=== PATIENT | female | born 1930 | race Caucasian/White ===

== ENCOUNTER 2018-11-13 19:47 | Inpatient (IN) ==
[2018-11-13 20:20] LABS: Basophils % 0.3 % (0.1-2.0); Eosinophils # 0.1 K/mm3 (0.0-0.4); Eosinophils % 0.7 % (0.1-12.0); Hematocrit 46.4 % (37.0-47.0); Hemoglobin 12.8 g/dL (12.2-16.2); Lymphocytes # 1.4 K/mm3 (0.7-4.5); Lymphocytes % 10.9 % (10-50); Mean Corpuscular HGB Conc 27.6 g/dL (31.8-35.4); Mean Corpuscular Hemoglobin 22.7 pg (27.0-31.2); Mean Corpuscular Volume 82.1 fl (81-99); Mean Platelet Volume 9.5 fl (7.4-10.4); Monocytes # 0.9 K/mm3 (0.1-1.0); Monocytes % 6.9 % (1.7-9.3); Neutrophils # 10.3 K/mm3 (1.8-7.8); Neutrophils % 81.2 % (37.0-80.0); Platelet Count 301 K/mm3 (142-424); Red Blood Count 5.65 M/mm3 (4.20-5.40); Red Cell Distribution Width 18.4 % (11.5-17.5); White Blood Count 12.6 K/mm3 (4.8-10.8)
--- NOTE | 2018-11-13 20:32 | Emergency Department Note ---
ED Disposition Clinical Impression: Hypercalcemia, Chronic atrial fibrillation, Hx of aortic valve replacement, Prolonged INR, Hypernatremia Acute renal failure (ARF) Qualifiers: Acute renal failure type: unspecified Qualified Code(s): N17.9 - Acute kidney failure, unspecified Disposition: Admitted as Observation Condition on Discharge: Good Referrals: Hussain Hines MD [Primary Care Provider] - - Critical Care Critical Care Time: No Attestation: On 11/13/18, the high probability of a clinically significant, sudden or life threatening deterioration of the following system(s) required my full and direct attention, intervention and personal management. The time I documented below is in addition to time spent performing reported procedures but includes the following listed in this critical care notation. Medical Decision Making - Medical Records Medical records reviewed: Yes: I reviewed the patient's medical records. - David Inquiry Pt receiving controlled substance: No Vital Signs: 11/13/18 19:49 Temperature 97.9 F Temperature Source Oral Pulse Rate [Right] 92 H Respiratory Rate 14 Blood Pressure [Right Arm] 120/67 Blood Pressure Mean [Right Arm] 84 Blood Pressure Source [Right Arm] Automatic Cuff Blood Pressure Position [Right Arm] Supine 02 Sat by Pulse Oximetry 98 Oxygen Delivery Method Room Air - Lab Data Lab results reviewed: Yes: I reviewed the patient's lab results. Lab Results 11/13/18 20:10: WBC 12.6 H, RBC 5.65 H, Hgb 12.8, Hct 46.4, MCV 82.1, MCH 22.7 L , MCHC 27.6 L, RDW 18.4 H, Plt Count 301, MPV 9.5, Neut % (Auto) 81.2 H, Lymph % (Auto) 10.9, [place] % (Auto) 6.9, Eos % (Auto) 0.7, Baso % (Auto) 0.3, Neut # (Auto) 10.3 H, Lymph # (Auto) 1.4, [place] # (Auto) 0.9, Eos # (Auto) 0.1, Baso # (Auto) 0.0 11/13/18 20:10: PT 52.9 H, INR 5.52 H 11/13/18 20:10: Sodium 156 H*, Potassium 5.3 H, Chloride 121 H, Carbon Dioxide 26, Anion Gap 14.3, BUN 79 H, Creatinine 3.10 H, Estimated Creat Clear 10, Estimated GFR 14 L*, Est GFR ( Amer) 17 L*, Glucose 202 H D, Calcium 12.3 H*, Total Bilirubin 0.4, AST 193 H, ALT 208 H, Alkaline Phosphatase 268 H, Troponin I 0.06, Total Protein 8.6 H, Albumin 3.0 L, Globulin 5.6 H, Albumin/Globulin Ratio 0.5 L Result diagrams: 11/13/18 20:10 11/13/18 20:10 Orders (Tests/Meds): ORDERS Category Date Time Status XR chest portable Stat Exams 11/13/18 19:57 Taken Urinalysis and Microscopic Stat Lab 11/13/18 19:55 Ordered - ECG Data Tracing #1 Arrhythmias present: afib/aflutter Ischemic changes: non-specific ST-T wave changes Conduction abnormalities present: LBBB ECG compared to prior tracings: there are no significant changes - Physician Consults Physician Consulted: jw Reason -: Admission Recheck HPI - General Chief Complaint: Recheck/Abnormal Lab/Rx Stated Complaint: abnormal labs Time Seen by Provider: 11/13/18 20:00 Mode of Arrival: EMS Limitations: Physical Limitations Description of Symptoms (Recalled from ER Triage Doc. by RN): Pt sent here by Dr De Guzman for abnormal labs - History of Present Illness HPI narrative: sent sec to abn labs was seen in the card [facility] - has hx of chf - Related Data Home Medications Medication Instructions Recorded Confirmed aspirin 81 mg tablet,delayed 81 mg PO DAILY 10/26/17 11/13/18 release Donepezil HCl [Aricept 10mg 10 mg PO HS 10/26/18 11/13/18 tablet] Gabapentin [Neurontin 100mg 100 mg PO BID 10/26/18 11/13/18 cap] Memantine HCl [Memantine 10mg 10 mg PO BID 10/26/18 11/13/18 Tablet] Mirabegron [Myrbetriq] 50 mg PO DAILY 10/26/18 11/13/18 Multivit-Min/FA/Lycopen/Lutein 1 each PO DAILY 10/26/18 11/13/18 [Centrum Silver Tablet] Polyethylene Glycol 3350 [Miralax 17 gm PO DAILY 10/26/18 11/13/18 17gm Packet] Warfarin Sodium 2.5 mg PO SUTUTHSA 10/26/18 11/13/18 Warfarin Sodium [Coumadin 2mg 5 mg PO MOWEFR 10/26/18 11/13/18 tablet] Fluticasone Propionate [Flonase 1 spr NS DAILY 10/29/18 11/13/18 50mcg nasal spray 16gm] Hydrocortisone [Proctosol-Hc] 1 applicatio TP TIDP PRN 10/29/18 11/13/18 Albuterol Sulfate [Proventil-HFA 1 - 2 puffs IH Q6HP PRN 11/13/18 11/13/18 90mcg/puff Inh] Metoprolol Tartrate [Lopressor 25 mg PO BID 11/13/18 11/13/18 25mg tablet] Potassium Chloride [K-Tab ER 20 20 meq PO BID 11/13/18 11/13/18 mEq] Spironolactone [Aldactone 25mg 25 mg PO DAILY 11/13/18 11/13/18 Tab] guaiFENesin [Guaifenesin] 100 mg PO Q4-6H PRN 11/13/18 11/13/18 Previous Rx's Medication Instructions Recorded Acetaminophen [Acetaminophen 325mg 650 mg PO Q4HP PRN tab 06/01/17 tab] dilTIAZem HCl [Diltiazem 180mg 180 mg PO DAILY #30 cap.er.24h 06/01/17 24Hr ER Cap] furosemide 40 mg tablet 40 mg PO DAILY #30 tab 11/13/18 Allergies Allergy/AdvReac Type Severity Reaction Status Date / Time No Known Allergies Allergy Verified 11/13/18 14:52 [facility] History - Hepatitis A Screen Drug use history?: No High risk sexual behaviors?: No History of sexually transmitted infection?: No Currently employed?: No Childcare worker?: No Do you have indoor plumbing?: Yes Do you have electricity?: Yes Attestation statement:: This patient has been screened for Hepatitis A risk factors. I have reviewed the patient's past medical history: Yes Medical History: Reports:: Arrhythmia, Asthma, Atrial Fibrillation, Congestive Heart Failure, Dementia, Gastroesophageal Reflux Disease(GERD), Hiatal Hernia, Hypertension, Osteoporosis, Palpitations, Renal Disease Denies:: Diabetes Mellitus Type 1, Diabetes Mellitus Type 2 Other Medical History: Reports: Anemia, Arthritis, Osteoporosis, Sinus Problems Comment: Cardiomegaly Laterality Cases: Bilateral: Carpal Tunnel Release Other Surgeries: Yes: Cardiac Surgery (aortic valve replacement), Cholecystect nickolas, Diagnostic Lap, Hysterectomy-Total, Tubal Ligation Amputation: No Fractures: No Comment: mitral valve replacement, hemorrhoids - Social History Smoking Status: Never smoker Alcohol Intake: never Alcohol Intake Frequency:: other Occupational Status: retired Housing: residential Household Members: other - Psychiatric History Expresses thoughts of harming self/others: None Suicide Plan Description: No Plan Family Hx:: No significant family history, Cancer, Heart Attack ROS Obtained: Yes All systems reviewed & no additional complaints - Constitutional Constitutional: Reports as per HPI, Denies fever(s), Reports weakness - Eyes Eyes: Denies change in vision - ENT Ears, Nose, Mouth, and Throat: Denies sore throat - Cardiovascular Cardiovascular: Denies chest pain - Respiratory Respiratory: No cough - Gastrointestinal Gastrointestingal: Denies: abdominal pain, vomiting - Genitourinary Female Genitourinary: Denies hematuria - Musculoskeletal Musculoskeletal: Denies joint swelling - Integumentary/Breasts Skin/Breast: Denies rash - Neurologic Neurologic: Denies seizure-like activity Physical Exam - General General appearance: alert, lethargic, cachectic - Head Head exam: normocephalic - Eye Eye exam: Present: PERRL, EOMI - ENT ENT exam: Present: mucous membranes dry - Neck Neck exam: Present: trachea midline - Respiratory Respiratory exam: Absent: respiratory distress - Cardiovascular Cardiovascular exam: Present: irregular rhythm, systolic murmur, +S4 - Abdominal Exam Abdominal exam: Present: soft - Extremities Exam Extremities exam: Present: pedal edema. Absent: calf tenderness - Neurological Exam Neurological exam: Present: alert, CN II-XII intact. Absent: motor sensory deficit - Skin Skin exam: Absent: rash
[2018-11-13 20:34] LABS: INR 5.52 (0.9-1.1); Prothrombin Time 52.9 seconds (9.4-11.8)
[2018-11-13 20:39] LABS: Albumin/Globulin Ratio 0.5 (1.1-1.8); Anion Gap 14.3 mEq/L (5-15); Bilirubin,Total 0.4 mg/dL (0.2-1.0); Globulin 5.6 gm/dl (1.3-3.2); Potassium 5.3 mmoL/L (3.5-5.1); Total Protein,Serum 8.6 gm/dL (6.4-8.2)
[2018-11-13 20:45] LABS: Calcium 12.3 mg/dL (8.5-10.1)
[2018-11-13 21:56] LABS: Microscopic, Urine URINE MICROSCOPIC (MICROSCOPIC)
[2018-11-13 21:58] LABS: Appearance,Urine CLEAR (Clear); Bilirubin,Urine Negative (Negative); Blood, Urine 2+ (Negative); Color,Urine YELLOW (Yellow); Glucose,Urine (UA) Negative (Negative); Ketones,Urine Negative (Negative); Leukocyte Esterase,Urine 1+ (Negative); Protein,Urine 1+ (Negative); Urobilinogen,Urine 0.2 EU/dl (0.2)
[2018-11-13 22:09] LABS: Bacteria,Urine Trace /lpf
[2018-11-13 22:10] LABS: Hyaline Casts,Urine Occasional #/lpf (0)
[2018-11-14 06:20] LABS: Basophils # 0.1 K/mm3 (0-0.2); Basophils % 0.4 % (0.1-2.0); Eosinophils # 0.2 K/mm3 (0.0-0.4); Eosinophils % 1.6 % (0.1-12.0); Hematocrit 42.7 % (37.0-47.0); Hemoglobin 11.7 g/dL (12.2-16.2); Lymphocytes % 17.6 % (10-50); Mean Corpuscular HGB Conc 27.4 g/dL (31.8-35.4); Mean Corpuscular Hemoglobin 22.7 pg (27.0-31.2); Mean Corpuscular Volume 82.9 fl (81-99); Mean Platelet Volume 8.5 fl (7.4-10.4); Monocytes # 0.7 K/mm3 (0.1-1.0); Monocytes % 6.6 % (1.7-9.3); Neutrophils # 8.3 K/mm3 (1.8-7.8); Neutrophils % 73.8 % (37.0-80.0); Platelet Count 237 K/mm3 (142-424); Red Blood Count 5.15 M/mm3 (4.20-5.40); Red Cell Distribution Width 18.6 % (11.5-17.5); White Blood Count 11.3 K/mm3 (4.8-10.8)
[2018-11-14 06:40] LABS: Anion Gap 11.7 mEq/L (5-15); Calcium 11.8 mg/dL (8.5-10.1); Potassium 4.7 mmoL/L (3.5-5.1)
--- NOTE | 2018-11-14 08:22 | Pharmacy Consult Notes ---
[facility] Pharmacy VTE Monitoring - Patient Demographics Admission date: 11/13/18 Report Date: 11/14/18 Time: 08:22 Allergies/Adverse Reactions: Patient Allergies No Known Allergies Allergy (Verified 11/13/18 14:52) Height: 1.57 m Weight: 50.037 kg Patient Problems: Current Active Problems (Updated 11/13/18 @ 21:41 by Garrett Colindres MD) Acute renal failure (ARF) (Acute) Hypercalcemia (Acute) Prolonged INR (Acute) Hypernatremia (Acute) Hx of aortic valve replacement (Chronic) Chronic atrial fibrillation (Chronic) - VTE Risk Labs: VTE Related Lab Results Hgb 11.7 g/dL (12.2-16.2) L 11/14/18 05:45 Hct 42.7 % (37.0-47.0) 11/14/18 05:45 Plt Count 237 K/mm3 (142-424) 11/14/18 05:45 PT 52.9 seconds (9.4-11.8) H 11/13/18 20:10 INR 5.52 (0.9-1.1) H 11/13/18 20:10 BUN 80 mg/dL (7-18) H 11/14/18 05:45 Creatinine 2.65 mg/dL (0.55-1.02) H 11/14/18 05:45 Estimated Creat Clear 12 mL/min (50-200) 11/14/18 05:45 Was VTE Risk Assessment Performed: Yes VTE Score: 11 VTE Risk Level: Moderate Risk Clinical Trial Participant: No - Prophylaxis VTE Prophylaxis Ordered?: Yes Types of VTE Prophylaxis: TEDS Knee High
[2018-11-14 08:32] LABS: INR 4.71 (0.9-1.1); Prothrombin Time 45.5 seconds (9.4-11.8)
--- NOTE | 2018-11-14 08:33 | History & Physical Report ---
*Admission Date: 11/13/18 <Norah Smith - 11/14/18 08:37> *Chief complaint: Lethargy; acute renal failure; dehydration <Tiara Smithhy 11/14/18 08:37> *History of present illness: Ms. Stevens is an 88-year-old female resident of [place] with a quite lengthy medical history to include acute systolic heart failure, chronic atrial fibrillation, chronic kidney disease stage III, anemia, allergic rhinitis, asthma, AVR, general mental and physical debility, hypertension, COPD, and dementia who was brought to [facility] emergency room for evaluation after being notified by Dr. De Guzman's office of abnormal laboratory results. Patient was seen in the office of Dr. De Guzman where labs were drawn on 11/13/2018 after which patient also presented to the office of [facility] and was seen by Dr. Hines. Recent labs showed a creatinine of 2.1. Diuretics were decreased and gabapentin discontinued. At the time of this visit she had been traveling to the offices in a wheelchair and appeared fatigued. To note she had recently been hospitalized in [facility] with cardiology consult and was treated aggressively for her acute systolic congestive heart failure with spironolactone and Lasix. With evaluation in the emergency room she was started on IV fluids and admitted for gentle hydration and monitoring of labs. This a.m. daughter is present in the room and states that she has been sleeping since admission. She states that initially after being discharged last week from [facility] back to [place] for about the first 3 days she did satisfactory. From then on she became weaker and had difficulty holding her head up when in a wheelchair. She was not eating and she was on fluid restriction. Today patient denies chest pain, shortness of breath, abdominal pain, and nausea. Daughter states she has had any vomiting or diarrhea. Urinary output has been diminished. <Norah Smith - 11/14/18 09:13> [facility] History Medical History: Reports:: Arrhythmia, Asthma, Atrial Fibrillation, Congestive Heart Failure, Dementia, Gastroesophageal Reflux Disease(GERD), Hiatal Hernia, Hypertension, Osteoporosis, Palpitations, Renal Disease Denies:: Cancer, Diabetes Mellitus Type 1, Diabetes Mellitus Type 2, MRSA <Norah Smith 11/14/18 08:37> *Have you ever received a pneumonia vaccine?: Yes <LuisNorah 11/14/18 08:37> *Have you received a flu vaccine this season?: Yes <SmithNorah 11/14/18 08:37> Other Medical History: Reports: Anemia, Arthritis, Osteoporosis, Sinus Problems <LuisNorah 11/14/18 08:37> Laterality Cases: Left: Cataract, Bilateral: Carpal Tunnel Release <Smith,Norah 11/14/18 08:37> Other Surgeries: Yes: Cardiac Catheterization, Cardiac Surgery (aortic valve replacement), Cholecystectomy, Diagnostic Lap, Hysterectomy-Total, Tubal Ligation <SmithNorah 11/14/18 08:37> Amputation: No <Norah Smith 11/14/18 08:37> Fractures: No <Smith,Norah 11/14/18 08:37> - *Social History Smoking Status: Never smoker <LuisNorah 11/14/18 08:37> Alcohol Intake: never <LuisNorah 11/14/18 08:37> Alcohol Intake Frequency:: other <SmithNorah 11/14/18 08:37> *Occupational Status:: retired <SmithNorah 11/14/18 08:37> Housing: senior care <SmithNorah 11/14/18 08:37> Household Members: other <SmithNorah 11/14/18 08:37> *Travel in the last 8 weeks: None <LuisNorah 11/14/18 08:37> - Psychiatric History Expresses thoughts of harming self/others: None <Norah Smith 11/14/18 08:3 7> Suicide Plan Description: No Plan <Norah Smith 11/14/18 08:37> Family Hx:: Cancer, Heart Attack <Norah Smith 11/14/18 08:53> Review of Systems - Constitutional Reports weakness, Denies fever(s), Denies headache(s) <Norah Smith 11/14/18 08:53> - Eyes Comments: Watery eyes <Norah Smith 11/14/18 08:53> - ENT Denies ear pain, Denies sore throat <Norah Smith 11/14/18 08:53> - *Cardiovascular Reports irregular heart rhythm, Denies chest pain <Norah Smith 11/14/18 08:53> - *Respiratory Denies chest congestion, Denies cough, Denies shortness of breath <Norah Smith 11/14/18 08:53> - *Gastrointestinal Denies abdominal pain, Denies change in stools, Denies difficulty swallowing, Denies nausea, Denies vomiting <Norah Smith 11/14/18 08:53> Comments: Has not been eating <Norah Smith 11/14/18 08:53> - *Genitourinary Comments: Decrease in urinary output <Norah Smith 11/14/18 08:53> - *Musculoskeletal Comments: Too weak to walk and to sit up in a wheelchair <Norah Smith 11/14/18 08:53> - *Neurologic Reports tremor(s), Reports weakness, Denies seizure-like activity, Denies seizure-like activity <Norah Smith 11/14/18 08:53> Meds Home Medications Medication Instructions Recorded Confirmed Type Acetaminophen [Acetaminophen 325mg 650 mg PO Q4HP PRN tab 06/01/17 11/13/18 Rx tab] dilTIAZem HCl [Diltiazem 180mg 180 mg PO DAILY #30 cap.er.24h 06/01/17 11/13/18 Rx 24Hr ER Cap] aspirin 81 mg tablet,delayed 81 mg PO DAILY 10/26/17 11/13/18 History release Donepezil HCl [Aricept 10mg 10 mg PO HS 10/26/18 11/13/18 History tablet] Memantine HCl [Memantine 10mg 10 mg PO BID 10/26/18 11/14/18 History Tablet] Mirabegron [Myrbetriq] 50 mg PO DAILY 10/26/18 11/14/18 History Multivit-Min/FA/Lycopen/Lutein 1 each PO DAILY 10/26/18 11/13/18 History [Centrum Silver Tablet] Polyethylene Glycol 3350 [Miralax 17 gm PO DAILY 10/26/18 11/14/18 History 17gm Packet] Warfarin Sodium [Coumadin 2mg 4 mg PO MOWEFR 10/26/18 11/14/18 History tablet] Fluticasone Propionate [Flonase 1 spr NS DAILY 10/29/18 11/13/18 History 50mcg nasal spray 16gm] Hydrocortisone [Proctosol-Hc] 1 applicatio TP TIDP PRN 10/29/18 11/13/18 History Albuterol Sulfate [Proventil-HFA 1 - 2 puffs IH Q6HP PRN 11/13/18 11/13/18 History 90mcg/puff Inh] Metoprolol Tartrate [Lopressor 25 mg PO BID 11/13/18 11/14/18 History 25mg tablet] Potassium Chloride [K-Tab ER 20 20 meq PO BID 11/13/18 11/13/18 History mEq] Spironolactone [Aldactone 25mg 25 mg PO DAILY 11/13/18 11/13/18 History Tab] furosemide 40 mg tablet 40 mg PO DAILY #30 tab 11/13/18 11/14/18 Rx guaiFENesin [Guaifenesin] 100 mg PO Q4-6H PRN 11/13/18 11/13/18 History <Hussain Hines - 11/14/18 12:32> Allergies Allergy/AdvReac Type Severity Reaction Status Date / Time No Known Allergies Allergy Verified 11/13/18 14:52 <Hussain Hines - 11/14/18 12:32> Exam Vital signs and Labs for Last 24 Hours: Temp Pulse Resp BP Pulse Ox 97.5 F L 80 17 129/70 97 11/14/18 07:47 11/14/18 07:47 11/14/18 07:47 11/14/18 07:47 11/14/18 07:47 Laboratory Results - last 24 hr 11/13/18 20:10: WBC 12.6 H, RBC 5.65 H, Hgb 12.8, Hct 46.4, MCV 82.1, MCH 22.7 L , MCHC 27.6 L, RDW 18.4 H, Plt Count 301, MPV 9.5, Neut % (Auto) 81.2 H, Lymph % (Auto) 10.9, [place] % (Auto) 6.9, Eos % (Auto) 0.7, Baso % (Auto) 0.3, Neut # (Auto) 10.3 H, Lymph # (Auto) 1.4, [place] # (Auto) 0.9, Eos # (Auto) 0.1, Baso # (Auto) 0.0 11/13/18 20:10: PT 52.9 H, INR 5.52 H 11/13/18 20:10: Sodium 156 H*, Potassium 5.3 H, Chloride 121 H, Carbon Dioxide 26, Anion Gap 14.3, BUN 79 H, Creatinine 3.10 H, Estimated Creat Clear 10, Estimated GFR 14 L*, Est GFR ( Amer) 17 L*, Glucose 202 H D, Calcium 12.3 H*, Total Bilirubin 0.4, AST 193 H, ALT 208 H, Alkaline Phosphatase 268 H, Troponin I 0.06, Total Protein 8.6 H, Albumin 3.0 L, Globulin 5.6 H, Albumin/Ela bulin Ratio 0.5 L 11/13/18 21:50: Urine Color Yellow, Urine Appearance Clear, Urine pH 6.0, Ur Specific [place] 1.020, Urine Protein 1+, Urine Glucose (UA) Negative, Urine Ketones Negative, Urine Blood 2+, Urine Nitrate Negative, Urine Bilirubin Negative, Urine Urobilinogen 0.2, Ur Leukocyte Esterase 1+ A, Urine RBC 10-20, Urine WBC 5-10, Ur Squamous Epith Cells 3-5, Urine Bacteria Trace, Hyaline Casts Occasional 11/14/18 05:45: WBC 11.3 H, RBC 5.15, Hgb 11.7 L, Hct 42.7, MCV 82.9, MCH 22.7 L , MCHC 27.4 L, RDW 18.6 H, Plt Count 237, MPV 8.5, Neut % (Auto) 73.8, Lymph % (Auto) 17.6, [place] % (Auto) 6.6, Eos % (Auto) 1.6, Baso % (Auto) 0.4, Neut # (Auto) 8.3 H, Lymph # (Auto) 2.0, [place] # (Auto) 0.7, Eos # (Auto) 0.2, Baso # (Auto) 0.1 11/14/18 05:45: PT 45.5 H, INR 4.71 H 11/14/18 05:45: Sodium 159 H*, Potassium 4.7, Chloride 122 H, Carbon Dioxide 30, Anion Gap 11.7, BUN 80 H, Creatinine 2.65 H, Estimated Creat Clear 12, Estimated GFR 17 L*, Est GFR ( Amer) 21 L D, Glucose 158 H D, Calcium 11.8 H, Magnesium 3.2 H 11/14/18 05:45: Total Bilirubin 0.3, Direct Bilirubin 0.1, Indirect Bilirubin 0.2, AST 148 H, ALT 185 H, Alkaline Phosphatase 237 H, Total Protein 7.8, Albumin 2.8 L <Hussain Hines - 11/14/18 12:32> Temp Pulse Resp BP Pulse Ox 97.5 F L 80 17 129/70 97 11/14/18 07:47 11/14/18 07:47 11/14/18 07:47 11/14/18 07:47 11/14/18 07:47 Laboratory Results - last 24 hr 11/13/18 20:10: WBC 12.6 H, RBC 5.65 H, Hgb 12.8, Hct 46.4, MCV 82.1, MCH 22.7 L , MCHC 27.6 L, RDW 18.4 H, Plt Count 301, MPV 9.5, Neut % (Auto) 81.2 H, Lymph % (Auto) 10.9, [place] % (Auto) 6.9, Eos % (Auto) 0.7, Baso % (Auto) 0.3, Neut # (Auto) 10.3 H, Lymph # (Auto) 1.4, [place] # (Auto) 0.9, Eos # (Auto) 0.1, Baso # (Auto) 0.0 11/13/18 20:10: PT 52.9 H, INR 5.52 H 11/13/18 20:10: Sodium 156 H*, Potassium 5.3 H, Chloride 121 H, Carbon Dioxide 26, Anion Gap 14.3, BUN 79 H, Creatinine 3.10 H, Estimated Creat Clear 10, Estimated GFR 14 L*, Est GFR ( Amer) 17 L*, Glucose 202 H D, Calcium 12.3 H*, Total Bilirubin 0.4, AST 193 H, ALT 208 H, Alkaline Phosphatase 268 H, Troponin I 0.06, Total Protein 8.6 H, Albumin 3.0 L, Globulin 5.6 H, Albumin/Globulin Ratio 0.5 L 11/13/18 21:50: Urine Color Yellow, Urine Appearance Clear, Urine pH 6.0, Ur Specific [place] 1.020, Urine Protein 1+, Urine Glucose (UA) Negative, Urine Ketones Negative, Urine Blood 2+, Urine Nitrate Negative, Urine Bilirubin Negat araseli, Urine Urobilinogen 0.2, Ur Leukocyte Esterase 1+ A, Urine RBC 10-20, Urine WBC 5-10, Ur Squamous Epith Cells 3-5, Urine Bacteria Trace, Hyaline Casts Occasional 11/14/18 05:45: WBC 11.3 H, RBC 5.15, Hgb 11.7 L, Hct 42.7, MCV 82.9, MCH 22.7 L , MCHC 27.4 L, RDW 18.6 H, Plt Count 237, MPV 8.5, Neut % (Auto) 73.8, Lymph % (Auto) 17.6, [place] % (Auto) 6.6, Eos % (Auto) 1.6, Baso % (Auto) 0.4, Neut # (Auto) 8.3 H, Lymph # (Auto) 2.0, [place] # (Auto) 0.7, Eos # (Auto) 0.2, Baso # (Auto) 0.1 11/14/18 05:45: Sodium 159 H*, Potassium 4.7, Chloride 122 H, Carbon Dioxide 30, Anion Gap 11.7, BUN 80 H, Creatinine 2.65 H, Estimated Creat Clear 12, Estimated GFR 17 L*, Est GFR ( Amer) 21 L D, Glucose 158 H D, Calcium 11.8 H, Magnesium 3.2 H <Norah Smith - 11/14/18 08:37> I & O for Last 24 hours: Intake & Output 11/12/18 11/13/18 11/14/18 11/15/18 11:59 11:59 11:59 11:59 Intake Total 918 / 918 Output Total 150 / 150 Balance 768 / 768 Weight 110 lb 5 oz <Hussain Hines - 11/14/18 12:32> Intake & Output 11/11/18 11/12/18 11/13/18 11/14/18 11:59 11:59 11:59 11:59 Intake Total 558 / 558 Output Total 150 / 150 Balance 408 / 408 Weight 110 lb 5 oz <Norah Smith 11/14/18 08:37> Radiology Reports for the Last 24 Hours: 11/13/2018 chest x-ray IMPRESSION: Mild cardiomegaly, healing right-sided rib fractures, no acute finding <Norah Smith 11/14/18 08:53> - Constitutional no acute distress <Norah Smith 11/14/18 08:53> Comments: Awakened easily from sleep. Answers questions with yes or no <Norah Smith 11/14/18 08:53> - *Routine HEENT Exam Head: Present: normocephalic, atraumatic <Norah Smith 11/14/18 08:53> Eye: Present: PERRL. Absent: conjunctival icterus, scleral injection <Norah Smith 11/14/18 08:53> ENT: Present: mucous membranes dry, oropharynx clear <Norah Smith 11/14/18 08:53> - *Routine Neck Exam Present: supple. Absent: carotid bruit, lymphadenopathy, thyromegaly <Norah Smith 11/14/18 08:53> - *Routine Respiratory Exam Present: CTA bilaterally (Anteriorly and posteriorly) <Norah Smith 11/14/18 08:53> - *Routine Cardiovascular Exam Present: murmur, irregular rhythm <Norah Smith 11/14/18 08:53> - *Routine Abdominal Exam Present: soft, normoactive bowel sounds. Absent: tenderness, distended <Norah Smith 11/14/18 08:53> - *Routine Extremities Exam Absent: edema, calf tenderness <Norah Smith 11/14/18 08:53> - *Routine Neurological Exam Present: alert <Norah Smith 11/14/18 08:53> Assessment and Plan (1) Acute renal failure (ARF) Current visit: Yes Status: Acute Qualifiers: Acute renal failure type: unspecified Qualified Code(s): N17.9 - Acute kidney failure, unspecified Category: Medical Code(s): N17.9 - Acute kidney failure, unspecified (2) Dementia Current visit: Yes Status: Chronic Category: Medical Code(s): F03.90 - Unspecified dementia without behavioral disturbance (3) Hypercalcemia Current visit: Yes Status: Acute Category: Medical Code(s): E83.52 - Hypercalcemia (4) Hypernatremia Current visit: Yes Status: Acute Category: Medical Code(s): E87.0 - Hyperosmolality and hypernatremia (5) Prolonged INR Current visit: Yes Status: Acute Category: Medical Code(s): R79.1 - Abnormal coagulation profile (6) Chronic atrial fibrillation Current visit: Yes Status: Chronic Category: Medical Code(s): I48.2 - Chronic atrial fibrillation (7) Hx of aortic valve replacement Current visit: Yes Status: Chronic Category: Surgical Code(s): Z95.2 - Presence of prosthetic heart valve (8) Acute systolic (congestive) heart failure Current visit: No Status: Chronic Category: Medical Code(s): I50.21 - Acute systolic (congestive) heart failure (9) CKD (chronic kidney disease) stage 3, GFR 30-59 ml/min Current visit: No Status: Chronic Category: Medical Code(s): N18.3 - Chronic kidney disease, stage 3 (moderate) <Norah Smith - 11/14/18 08:56> (1) Dehydration Current visit: Yes Status: Acute Category: Medical Code(s): E86.0 - Dehydration (2) Hypernatremia Current visit: Yes Status: Acute Category: Medical Code(s): E87.0 - Hyperosmolality and hypernatremia (3) Acute renal failure (ARF) Current visit: Yes Status: Acute Qualifiers: Acute renal failure type: unspecified Qualified Code(s): N17.9 - Acute kidney failure, unspecified Category: Medical Code(s): N17.9 - Acute kidney failure, unspecified (4) Dementia Current visit: Yes Status: Chronic Category: Medical Code(s): F03.90 - Unspecified dementia without behavioral disturbance (5) Hypercalcemia Current visit: Yes Status: Acute Category: Medical Code(s): E83.52 - Hypercalcemia (6) Prolonged INR Current visit: Yes Status: Acute Category: Medical Code(s): R79.1 - Abnormal coagulation profile (7) Chronic atrial fibrillation Current visit: Yes Status: Chronic Category: Medical Code(s): I48.2 - Chronic atrial fibrillation (8) Hx of aortic valve replacement Current visit: Yes Status: Chronic Category: Surgical Code(s): Z95.2 - Presence of prosthetic heart valve (9) Acute systolic (congestive) heart failure Current visit: No Status: Chronic Category: Medical Code(s): I50.21 - Acute systolic (congestive) heart failure (10) CAD (coronary artery disease) Current visit: No Status: Chronic Qualifiers: Coronary Disease-Associated Artery/Lesion type: [place] artery [place] vs. transplanted heart: [place] heart Associated angina: without angina Qualified Code(s): I25.10 - Atherosclerotic heart disease of [place] coronary artery without angina pectoris Category: Medical Code(s): I25.10 - Atherosclerotic heart disease of [place] coronary artery without angina pectoris (11) Elevated liver enzymes Current visit: Yes Status: Acute Category: Medical Code(s): R74.8 - Abnormal levels of other serum enzymes <Hussain Hines - 11/14/18 12:32> - Assessment and plan all Dx Assessment and Plan for all problems:: Patient seen and examined. Will continue with hydration and follow labs. Cardiology consult for direction on medications <Hussain Hines - 11/14/18 12:32> Gentle hydration. Will change IV fluids to D5W due to increasing isodium. We will continue to monitor labs. Daughter will encourage p.o. fluids. <Norah Smith - 11/14/18 09:13>
[2018-11-14 08:48] LABS: Albumin Level 2.8 gm/dL (3.4-5.0); Bilirubin,Direct 0.1 mg/dL (0.0-0.2); Bilirubin,Indirect 0.2 mg/dL (0.0-0.9); Bilirubin,Total 0.3 mg/dL (0.2-1.0); Total Protein,Serum 7.8 gm/dL (6.4-8.2)
--- NOTE | 2018-11-14 10:31 | Progress Note ---
Subjective Date: 11/14/18 Time: 10:00 Principal diagnosis: dehydration Interval history: This is an 88-year-old white female who was admitted to the hospital with dehydration. Patient was seen in the cardiology clinic yesterday with complaints of fatigue, lethargy and feeling jittery. The patient's daughter was the one giving most of her history. She states that her mom just had not felt well for 3 days. The patient was felt to be dehydrated. Her diuretics were decreased. She was sent for blood work which showed a sodium of 158, a potassium of 6, creatinine of 2.81, calcium 12.5 and a BNP of 1700. The patient was then referred for hospital admission due to her severe dehydration. This morning the patient's sodium remains elevated at 159, her potassium is down to 4.7 and her creatinine is 2.65. Her liver enzymes remain elevated this morning as well. S he states that she is feeling somewhat better. She still having some fatigue but she is more alert today and able to answer all of my questions. she denies any chest pain or pressure. She denies any shortness of breath or edema. She denies any fever, chills, nausea, vomiting, diarrhea, PND or orthopnea. Exam Vital signs and Labs for Last 24 Hours: Temp Pulse Resp BP Pulse Ox 97.5 F L 80 17 129/70 97 11/14/18 07:47 11/14/18 07:47 11/14/18 07:47 11/14/18 07:47 11/14/18 07:47 Laboratory Results - last 24 hr 11/13/18 20:10: WBC 12.6 H, RBC 5.65 H, Hgb 12.8, Hct 46.4, MCV 82.1, MCH 22.7 L , MCHC 27.6 L, RDW 18.4 H, Plt Count 301, MPV 9.5, Neut % (Auto) 81.2 H, Lymph % (Auto) 10.9, [place] % (Auto) 6.9, Eos % (Auto) 0.7, Baso % (Auto) 0.3, Neut # (Auto) 10.3 H, Lymph # (Auto) 1.4, [place] # (Auto) 0.9, Eos # (Auto) 0.1, Baso # (Auto) 0.0 11/13/18 20:10: PT 52.9 H, INR 5.52 H 11/13/18 20:10: Sodium 156 H*, Potassium 5.3 H, Chloride 121 H, Carbon Dioxide 26, Anion Gap 14.3, BUN 79 H, Creatinine 3.10 H, Estimated Creat Clear 10, Estimated GFR 14 L*, Est GFR ( Amer) 17 L*, Glucose 202 H D, Calcium 12.3 H*, Total Bilirubin 0.4, AST 193 H, ALT 208 H, Alkaline Phosphatase 268 H, Troponin I 0.06, Total Protein 8.6 H, Albumin 3.0 L, Globulin 5.6 H, Albumin/Globulin Ratio 0.5 L 11/13/18 21:50: Urine Color Yellow, Urine Appearance Clear, Urine pH 6.0, Ur Specific [place] 1.020, Urine Protein 1+, Urine Glucose (UA) Negative, Urine Ketones Negative, Urine Blood 2+, Urine Nitrate Negative, Urine Bilirubin Negative, Urine Urobilinogen 0.2, Ur Leukocyte Esterase 1+ A, Urine RBC 10-20, Urine WBC 5-10, Ur Squamous Epith Cells 3-5, Urine Bacteria Trace, Hyaline Casts Occasional 11/14/18 05:45: WBC 11.3 H, RBC 5.15, Hgb 11.7 L, Hct 42.7, MCV 82.9, MCH 22.7 L , MCHC 27.4 L, RDW 18.6 H, Plt Count 237, MPV 8.5, Neut % (Auto) 73.8, Lymph % (Auto) 17.6, [place] % (Auto) 6.6, Eos % (Auto) 1.6, Baso % (Auto) 0.4, Neut # (Auto) 8.3 H, Lymph # (Auto) 2.0, [place] # (Auto) 0.7, Eos # (Auto) 0.2, Baso # (Auto) 0.1 11/14/18 05:45: PT 45.5 H, INR 4.71 H 11/14/18 05:45: Sodium 159 H*, Potassium 4.7, Chloride 122 H, Carbon Dioxide 30, Anion Gap 11.7, BUN 80 H, Creatinine 2.65 H, Estimated Creat Clear 12, Estimated GFR 17 L*, Est GFR ( Amer) 21 L D, Glucose 158 H D, Calcium 11.8 H, Magnesium 3.2 H 11/14/18 05:45: Total Bilirubin 0.3, Direct Bilirubin 0.1, Indirect Bilirubin 0.2, AST 148 H, ALT 185 H, Alkaline Phosphatase 237 H, Total Protein 7.8, Albumin 2.8 L I & O for Last 24 hours: Intake & Output 11/11/18 11/12/18 11/13/18 11/14/18 23:59 23:59 23:59 23:59 Intake Total 918 / 918 Output Total 150 / 150 Balance 768 / 768 Weight 108 lb 110 lb 5 oz - *Routine HEENT Exam Head: Present: normocephalic, atraumatic Eye: Present: EOMI, PERRL ENT: Present: mucous membranes dry - *Routine Neck Exam Present: supple, full ROM. Absent: JVD, carotid bruit, lymphadenopathy - *Routine Respiratory Exam Present: CTA bilaterally - *Routine Cardiovascular Exam Present: Normal S1, Normal S2, murmur, irregularly irregular - *Routine Abdominal Exam Present: soft, normoactive bowel sounds. Absent: tenderness, distended - *Routine Extremities Exam Present: full ROM, pulses intact. Absent: cyanosis, clubbing, edema - *Routine Skin Exam Present: intact, warm. Absent: rash - *Routine Neurological Exam Present: alert, CN II-XII intact. Absent: sensory deficit, motor deficit - Detailed Eye Exam Eyelids: Left normal inspection Progress Note: A&P (1) Dehydration Status: Acute Current Visit: Yes (2) Hypernatremia Status: Acute Current Visit: Yes (3) Acute renal failure (ARF) Status: Acute Current Visit: Yes (4) Dementia Status: Chronic Current Visit: Yes (5) Hypercalcemia Status: Acute Current Visit: Yes (6) Prolonged INR Status: Acute Current Visit: Yes (7) Chronic atrial fibrillation Status: Chronic Current Visit: Yes (8) Hx of aortic valve replacement Status: Chronic Current Visit: Yes (9) Acute systolic (congestive) heart failure Status: Chronic Current Visit: No (10) CAD (coronary artery disease) Status: Chronic Current Visit: No (11) Elevated liver enzymes Status: Acute Current Visit: Yes Assessment and Plan for All Diagnoses:: Plan: 1. The patient was admitted to the hospital for severe dehydration. The patient's sodium was 158 yesterday and her creatinine was 2.81. The patient has been getting D5W at 75 mL an hour. This morning her sodium is higher at 159 and her creatinine is 2.65. The patient needs a significant amount of free water in order to correct her hyponatremia. Will bolus her 1 L of D5W now and then give her D5W at 175 mL an hour for 2 L. 2. Have had a long discussion with the patient and her family about having her drink as much free water as possible. The patient is more awake and alert today so she is able to drink. She does require thickened liquids and I want them to have her drink as much water as she can today. The patient and her family both verbalized understanding. If she is unable to take in oral intake then we may have to consider an NG tube. 3. Repeat her BMP and liver panel in the morning. 4. The patient does have coronary artery disease which is stable. 5. Her blood pressure is well controlled. 6. Her LDL goal is less than 55. 7. The patient does have systolic congestive heart failure with an ejection fraction of 30%. Her BNP is elevated at 1700. However the BNP elevation is most likely secondary to her having pulmonary hypertension and a stretched right atrium and right ventricle. Currently she is dehydrated and needs more free water. We will continue to monitor the patient while getting fluids to make sure she does not go into pulmonary edema. 8. Further recommendations will be made pending the patient's response to treatment. Thank you for the opportunity to help participate in the care of this patient.
[2018-11-15 06:25] LABS: Basophils % 0.2 % (0.1-2.0); Eosinophils # 0.4 K/mm3 (0.0-0.4); Eosinophils % 3.3 % (0.1-12.0); Hematocrit 38.5 % (37.0-47.0); Hemoglobin 11.2 g/dL (12.2-16.2); Lymphocytes # 1.5 K/mm3 (0.7-4.5); Lymphocytes % 11.5 % (10-50); Mean Corpuscular Hemoglobin 23.8 pg (27.0-31.2); Mean Corpuscular Volume 81.9 fl (81-99); Mean Platelet Volume 9.6 fl (7.4-10.4); Monocytes # 0.9 K/mm3 (0.1-1.0); Monocytes % 6.4 % (1.7-9.3); Neutrophils # 10.5 K/mm3 (1.8-7.8); Neutrophils % 78.6 % (37.0-80.0); Platelet Count 215 K/mm3 (142-424); Red Cell Distribution Width 18.1 % (11.5-17.5); White Blood Count 13.3 K/mm3 (4.8-10.8)
[2018-11-15 06:36] LABS: Albumin Level 2.4 gm/dL (3.4-5.0); Albumin/Globulin Ratio 0.6 (1.1-1.8); Bilirubin,Total 0.4 mg/dL (0.2-1.0); Globulin 4.3 gm/dl (1.3-3.2); Total Protein,Serum 6.7 gm/dL (6.4-8.2)
[2018-11-15 07:08] LABS: INR 5.24 (0.9-1.1); Prothrombin Time 50.4 seconds (9.4-11.8)
[2018-11-15 07:21] LABS: Calcium 10.1 mg/dL (8.5-10.1)
[2018-11-15 08:03] LABS: Bilirubin,Direct 0.1 mg/dL (0.0-0.2)
--- NOTE | 2018-11-15 08:20 | Progress Note ---
<Enedelia Newsome - Last Filed: 11/15/18 08:17> Internal Medicine - PN: Subj *Date: 11/15/18 *Time: 08:17 Interval history: Patient is still lethargic but can answer questions. Her family states she did eat some breakfast this morning, which is an improvement. She denies any pain. Nursing states her INR is increasing. Exam Vital signs and Labs for Last 24 Hours: Temp Pulse Resp BP Pulse Ox 97.7 F 59 L 18 108/59 L 99 11/15/18 07:30 11/15/18 07:30 11/15/18 07:30 11/15/18 07:30 11/15/18 07:30 Laboratory Results - last 24 hr 11/14/18 05:45: PT 45.5 H, INR 4.71 H 11/14/18 05:45: Total Bilirubin 0.3, Direct Bilirubin 0.1, Indirect Bilirubin 0.2, AST 148 H, ALT 185 H, Alkaline Phosphatase 237 H, Total Protein 7.8, Albumin 2.8 L 11/15/18 05:37: WBC 13.3 H, RBC 4.70, Hgb 11.2 L, Hct 38.5, MCV 81.9, MCH 23.8 L , MCHC 29.0 L, RDW 18.1 H, Plt Count 215, MPV 9.6, Neut % (Auto) 78.6, Lymph % (Auto) 11.5, [place] % (Auto) 6.4, Eos % (Auto) 3.3, Baso % (Auto) 0.2, Neut # (Auto) 10.5 H, Lymph # (Auto) 1.5, [place] # (Auto) 0.9, Eos # (Auto) 0.4, Baso # (Auto) 0.0 11/15/18 05:37: PT 50.4 H, INR 5.24 H 11/15/18 05:37: Sodium 137, Potassium 4.0, Chloride 102, Carbon Dioxide 28, Anion Gap 11.0, BUN 51 H D, Creatinine 1.68 H D, Estimated Creat Clear 19, Estimated GFR 29 L, Est GFR ( Amer) 35 L D, Glucose 142 H, Calcium 10.1 D, Total Bilirubin 0.4, Direct Bilirubin 0.1, AST 65 H D, ALT 120 H D, Alkaline Phosphatase 198 H, Total Protein 6.7, Albumin 2.4 L D, Globulin 4.3 H, Albumin/Globulin Ratio 0.6 L 11/15/18 05:37: Total Bilirubin Cancelled, Direct Bilirubin Cancelled, Indirect Bilirubin Cancelled, AST Cancelled, ALT Cancelled, Alkaline Phosphatase Cancelled, Total Protein Cancelled, Albumin Cancelled I & O for Last 24 hours: Intake & Output 11/12/18 11/13/18 11/14/18 11/15/18 11:59 11:59 11:59 11:59 Intake Total 918 / 918 4287 / 4287 Output Total 150 / 150 350 / 350 Balance 768 / 768 3937 / 3937 Weight 110 lb 5 oz 110 lb 5 oz Microbiology Reports for the Last 24 Hours: Microbiology 11/13/18 21:50 Urine,Catheterized Urine Culture - Preliminary - Constitutional no acute distress (lethargic but can answer questions) - *Routine Respiratory Exam Present: CTA bilaterally - *Routine Cardiovascular Exam Present: RRR - *Routine Extremities Exam Absent: cyanosis, clubbing, edema - *Routine Skin Exam Present: warm. Absent: rash Assessment and Plan (1) Dehydration Current visit: Yes Status: Acute Category: Medical Code(s): E86.0 - Dehydration (2) Hypernatremia Current visit: Yes Status: Acute Category: Medical Code(s): E87.0 - Hyperosmolality and hypernatremia (3) Acute renal failure (ARF) Current visit: Yes Status: Acute Qualifiers: Acute renal failure type: unspecified Qualified Code(s): N17.9 - Acute kidney failure, unspecified Category: Medical Code(s): N17.9 - Acute kidney failure, unspecified (4) Dementia Current visit: Yes Status: Chronic Category: Medical Code(s): F03.90 - Unspecified dementia without behavioral disturbance (5) Hypercalcemia Current visit: Yes Status: Acute Category: Medical Code(s): E83.52 - Hypercalcemia (6) Prolonged INR Current visit: Yes Status: Acute Category: Medical Code(s): R79.1 - Abnormal coagulation profile (7) Chronic atrial fibrillation Current visit: Yes Status: Chronic Category: Medical Code(s): I48.2 - Chronic atrial fibrillation (8) Hx of aortic valve replacement Current visit: Yes Status: Chronic Category: Surgical Code(s): Z95.2 - Presence of prosthetic heart valve (9) Acute systolic (congestive) heart failure Current visit: No Status: Chronic Category: Medical Code(s): I50.21 - Acute systolic (congestive) heart failure (10) CAD (coronary artery disease) Current visit: No Status: Chronic Qualifiers: Coronary Disease-Associated Artery/Lesion type: [place] artery [place] vs. transplanted heart: [place] heart Associated angina: without angina Qualified Code(s): I25.10 - Atherosclerotic heart disease of [place] coronary artery without angina pectoris Category: Medical Code(s): I25.10 - Atherosclerotic heart disease of [place] coronary artery without angina pectoris (11) Elevated liver enzymes Current visit: Yes Status: Acute Category: Medical Code(s): R74.8 - Abnormal levels of other serum enzymes - Assessment and plan all Dx Assessment and Plan for all problems:: Labs are improving other than her INR. We will continue gentle hydration and get a swallowing eval today as patient has seemed to have difficulty swallowing. <Hussain Hines - Last Filed: 11/15/18 13:41> Internal Medicine - PN: Subj *Date: 11/15/18 *Time: 13:40 Exam Vital signs and Labs for Last 24 Hours: Temp Pulse Resp BP Pulse Ox 97.9 F 55 L 16 101/52 L 100 11/15/18 11:28 11/15/18 11:28 11/15/18 11:28 11/15/18 11:28 11/15/18 11:28 Laboratory Results - last 24 hr 11/13/18 21:50: Urine Color Yellow, Urine Appearance Clear, Urine pH 6.0, Ur Specific [place] 1.020, Urine Protein 1+, Urine Glucose (UA) Negative, Urine Ketones Negative, Urine Blood 2+, Urine Nitrate Negative, Urine Bilirubin Negative, Urine Urobilinogen 0.2, Ur Leukocyte Esterase 1+ A, Urine RBC 10-20, Urine WBC 5-10, Ur Squamous Epith Cells 3-5, Urine Bacteria Trace, Hyaline Casts Occasional 11/15/18 05:37: WBC 13.3 H, RBC 4.70, Hgb 11.2 L, Hct 38.5, MCV 81.9, MCH 23.8 L , MCHC 29.0 L, RDW 18.1 H, Plt Count 215, MPV 9.6, Neut % (Auto) 78.6, Lymph % (Auto) 11.5, [place] % (Auto) 6.4, Eos % (Auto) 3.3, Baso % (Auto) 0.2, Neut # (Auto) 10.5 H, Lymph # (Auto) 1.5, [place] # (Auto) 0.9, Eos # (Auto) 0.4, Baso # (Auto) 0.0 11/15/18 05:37: PT 50.4 H, INR 5.24 H 11/15/18 05:37: Sodium 137, Potassium 4.0, Chloride 102, Carbon Dioxide 28, Anion Gap 11.0, BUN 51 H D, Creatinine 1.68 H D, Estimated Creat Clear 19, Estimated GFR 29 L, Est GFR ( Amer) 35 L D, Glucose 142 H, Calcium 10.1 D, Total Bilirubin 0.4, Direct Bilirubin 0.1, AST 65 H D, ALT 120 H D, Alkaline Phosphatase 198 H, Total Protein 6.7, Albumin 2.4 L D, Globulin 4.3 H, Albumin/Globulin Ratio 0.6 L 11/15/18 05:37: Total Bilirubin Cancelled, Direct Bilirubin Cancelled, Indirect Bilirubin Cancelled, AST Cancelled, ALT Cancelled, Alkaline Phosphatase Cancelled, Total Protein Cancelled, Albumin Cancelled I & O for Last 24 hours: Intake & Output 11/13/18 11/14/18 11/15/18 11/16/18 11:59 11:59 11:59 11:59 Intake Total 918 / 918 4767 / 4767 360 / 360 Output Total 150 / 150 350 / 350 Balance 768 / 768 4417 / 4417 360 / 360 Weight 110 lb 5 oz 110 lb 5 oz Microbiology Reports for the Last 24 Hours: Microbiology 11/13/18 21:50 Urine,Catheterized Urine Culture - Preliminary Gram Positive Cocci Assessment and Plan (1) Dehydration Current visit: Yes Status: Acute Category: Medical Code(s): E86.0 - Dehydration (2) Hypernatremia Current visit: Yes Status: Acute Category: Medical Code(s): E87.0 - Hyperosmolality and hypernatremia (3) Acute renal failure (ARF) Current visit: Yes Status: Acute Qualifiers: Acute renal failure type: unspecified Qualified Code(s): N17.9 - Acute kidney failure, unspecified Category: Medical Code(s): N17.9 - Acute kidney failure, unspecified (4) Dementia Current visit: Yes Status: Chronic Category: Medical Code(s): F03.90 - Unspecified dementia without behavioral disturbance (5) Hypercalcemia Current visit: Yes Status: Acute Category: Medical Code(s): E83.52 - Hypercalcemia (6) Prolonged INR Current visit: Yes Status: Acute Category: Medical Code(s): R79.1 - Abnormal coagulation profile (7) Chronic atrial fibrillation Current visit: Yes Status: Chronic Category: Medical Code(s): I48.2 - Chronic atrial fibrillation (8) Hx of aortic valve replacement Current visit: Yes Status: Chronic Category: Surgical Code(s): Z95.2 - Presence of prosthetic heart valve (9) Acute systolic (congestive) heart failure Current visit: No Status: Chronic Category: Medical Code(s): I50.21 - Acute systolic (congestive) heart failure (10) CAD (coronary artery disease) Current visit: No Status: Chronic Qualifiers: Coronary Disease-Associated Artery/Lesion type: [place] artery [place] vs. transplanted heart: [place] heart Associated angina: without angina Qualified Code(s): I25.10 - Atherosclerotic heart disease of [place] coronary artery without angina pectoris Category: Medical Code(s): I25.10 - Atherosclerotic heart disease of [place] coronary artery without angina pectoris (11) Elevated liver enzymes Current visit: Yes Status: Acute Category: Medical Code(s): R74.8 - Abnormal levels of other serum enzymes - Assessment and plan all Dx Assessment and Plan for all problems:: Patient seen and examined this AM. Concur with assessment and plan.
--- NOTE | 2018-11-15 09:45 | Progress Note ---
Subjective Date: 11/15/18 Time: 09:40 Principal diagnosis: dehydration Interval history: 88 yo WF awake and in NAD. Daughter relates pt is more alert and awake but not back to baseline yet. Exam Vital signs and Labs for Last 24 Hours: Temp Pulse Resp BP Pulse Ox 97.7 F 59 L 18 108/59 L 99 11/15/18 07:30 11/15/18 07:30 11/15/18 07:30 11/15/18 07:30 11/15/18 07:30 Laboratory Results - last 24 hr 11/15/18 05:37: WBC 13.3 H, RBC 4.70, Hgb 11.2 L, Hct 38.5, MCV 81.9, MCH 23.8 L , MCHC 29.0 L, RDW 18.1 H, Plt Count 215, MPV 9.6, Neut % (Auto) 78.6, Lymph % (Auto) 11.5, [place] % (Auto) 6.4, Eos % (Auto) 3.3, Baso % (Auto) 0.2, Neut # (Auto) 10.5 H, Lymph # (Auto) 1.5, [place] # (Auto) 0.9, Eos # (Auto) 0.4, Baso # (Auto) 0.0 11/15/18 05:37: PT 50.4 H, INR 5.24 H 11/15/18 05:37: Sodium 137, Potassium 4.0, Chloride 102, Carbon Dioxide 28, Anion Gap 11.0, BUN 51 H D, Creatinine 1.68 H D, Estimated Creat Clear 19, Estimated GFR 29 L, Est GFR ( Amer) 35 L D, Glucose 142 H, Calcium 10.1 D, Total Bilirubin 0.4, Direct Bilirubin 0.1, AST 65 H D, ALT 120 H D, Alkaline Phosphatase 198 H, Total Protein 6.7, Albumin 2.4 L D, Globulin 4.3 H, Albumin/Globulin Ratio 0.6 L 11/15/18 05:37: Total Bilirubin Cancelled, Direct Bilirubin Cancelled, Indirect Bilirubin Cancelled, AST Cancelled, ALT Cancelled, Alkaline Phosphatase Cancelled, Total Protein Cancelled, Albumin Cancelled I & O for Last 24 hours: Intake & Output 06/17/19 06/18/19 06/19/19 06/20/19 11:59 11:59 11:59 11:59 Intake Total 918 / 918 4287 / 4287 Output Total 150 / 150 350 / 350 Balance 768 / 768 3937 / 3937 Weight 110 lb 5 oz 110 lb 5 oz Microbiology Reports for the Last 24 Hours: Microbiology 11/13/18 21:50 Urine,Catheterized Urine Culture - Preliminary - *Routine Respiratory Exam Present: CTA bilaterally. Absent: accessory muscle use, rales, rhonchi, wheezes - *Routine Cardiovascular Exam Present: RRR. Absent: murmur, gallop, rubs - *Routine Neurological Exam Present: alert, oriented X3, moving all extremities Progress Note: A&P (1) Dehydration Status: Acute Current Visit: Yes (2) Hypernatremia Status: Acute Current Visit: Yes (3) Acute renal failure (ARF) Status: Acute Current Visit: Yes (4) Dementia Status: Chronic Current Visit: Yes (5) Hypercalcemia Status: Acute Current Visit: Yes (6) Prolonged INR Status: Acute Current Visit: Yes (7) Chronic atrial fibrillation Status: Chronic Current Visit: Yes (8) Hx of aortic valve replacement Status: Chronic Current Visit: Yes (9) Acute systolic (congestive) heart failure Status: Chronic Current Visit: No (10) CAD (coronary artery disease) Status: Chronic Current Visit: No (11) Elevated liver enzymes Status: Acute Current Visit: Yes Assessment and Plan for All Diagnoses:: Continue IVF but reduce rate to KVO Getting swallowing evaluation today for difficulty swallowing Labs significantly improved Consider restarting lasix 40 mg daily and spironolactone 25 mg daily tomorrow for history of moderate MR/CHF. Coumadin on hold due to INR >5 for a.fib. Bioprosthetic aortic valve working appropriately by echo this month.
[2018-11-16 06:55] LABS: Anion Gap 11.3 mEq/L (5-15); Calcium 9.9 mg/dL (8.5-10.1); Potassium 4.3 mmoL/L (3.5-5.1)
--- NOTE | 2018-11-16 07:51 | Progress Note ---
Subjective Date: 11/16/18 Time: 07:47 Principal diagnosis: dehydration Interval history: 88 yo WF in bed in NAD. Daughter states she is much better than on admission. She was able to feed herself last evening. Pt denies any chest pain or SOA. Exam Vital signs and Labs for Last 24 Hours: Temp Pulse Resp BP Pulse Ox 98.5 F 46 L 18 94/50 L 98 11/16/18 04:00 11/16/18 04:00 11/16/18 04:00 11/16/18 04:00 11/16/18 04:00 Laboratory Results - last 24 hr 11/13/18 21:50: Urine Color Yellow, Urine Appearance Clear, Urine pH 6.0, Ur Specific [place] 1.020, Urine Protein 1+, Urine Glucose (UA) Negative, Urine Ketones Negative, Urine Blood 2+, Urine Nitrate Negative, Urine Bilirubin Negative, Urine Urobilinogen 0.2, Ur Leukocyte Esterase 1+ A, Urine RBC 10-20, Urine WBC 5-10, Ur Squamous Epith Cells 3-5, Urine Bacteria Trace, Hyaline Casts Occasional 11/15/18 05:37: Direct Bilirubin 0.1 11/16/18 06:26: Sodium 136, Potassium 4.3, Chloride 102, Carbon Dioxide 27, Anion Gap 11.3, BUN 37 H D, Creatinine 1.34 H D, Estimated Creat Clear 24, [place] mated GFR 37 L, Est GFR ( Amer) 45 L D, Glucose 104, Calcium 9.9 I & O for Last 24 hours: Intake & Output 11/13/18 11/14/18 11/15/18 11/16/18 11:59 11:59 11:59 11:59 Intake Total 918 / 918 4767 / 4767 1444 / 1444 Output Total 150 / 150 350 / 350 300 / 300 Balance 768 / 768 4417 / 4417 1144 / 1144 Weight 110 lb 5 oz 110 lb 5 oz 112 lb 2 oz Microbiology Reports for the Last 24 Hours: Microbiology 11/13/18 21:50 Urine,Catheterized Urine Culture - Preliminary Strep agalactiae - (group b) - *Routine HEENT Exam Head: Present: normocephalic Eye: Present: EOMI, PERRL ENT: Present: mucous membranes moist - *Routine Respiratory Exam Present: CTA bilaterally. Absent: accessory muscle use, rales, rhonchi, wheezes - *Routine Cardiovascular Exam Present: RRR, murmur. Absent: gallop, rubs - *Routine Neurological Exam Present: alert, moving all extremities Progress Note: A&P (1) Dehydration Status: Acute Current Visit: Yes (2) Hypernatremia Status: Acute Current Visit: Yes (3) Acute renal failure (ARF) Status: Acute Current Visit: Yes (4) Dementia Status: Chronic Current Visit: Yes (5) Hypercalcemia Status: Acute Current Visit: Yes (6) Prolonged INR Status: Acute Current Visit: Yes (7) Chronic atrial fibrillation Status: Chronic Current Visit: Yes (8) Hx of aortic valve replacement Status: Chronic Current Visit: Yes (9) Acute systolic (congestive) heart failure Status: Chronic Current Visit: No (10) CAD (coronary artery disease) Status: Chronic Current Visit: No (11) Elevated liver enzymes Status: Acute Current Visit: Yes Assessment and Plan for All Diagnoses:: INR pending. Coumadin on hold for now. BUN/Cr improved. Recommend starting low does lasix 40 mg daily and spironolactone 25 mg daily with weekly BMP upon discharge. Cardiac status stable. OK for discharge from cardiology standpoint. Follow up in 2 wks.
--- NOTE | 2018-11-16 08:39 | Progress Note ---
Internal Medicine - PN: Subj *Date: 11/16/18 *Time: 08:35 Interval history: Patient states she is feeling good this morning. Her daughter states she is much better than yesterday. She is much more awake and alert and does answer questions today. She still is not wanting to eat. She denies any pain today. Exam Vital signs and Labs for Last 24 Hours: Temp Pulse Resp BP Pulse Ox 97.7 F 57 L 17 102/47 L 98 11/16/18 07:49 11/16/18 07:49 11/16/18 07:49 11/16/18 07:49 11/16/18 07:49 Laboratory Results - last 24 hr 11/13/18 21:50: Urine Color Yellow, Urine Appearance Clear, Urine pH 6.0, Ur Specific [place] 1.020, Urine Protein 1+, Urine Glucose (UA) Negative, Urine Ketones Negative, Urine Blood 2+, Urine Nitrate Negative, Urine Bilirubin Negative, Urine Urobilinogen 0.2, Ur Leukocyte Esterase 1+ A, Urine RBC 10-20, Urine WBC 5-10, Ur Squamous Epith Cells 3-5, Urine Bacteria Trace, Hyaline Casts Occasional 11/16/18 06:26: Sodium 136, Potassium 4.3, Chloride 102, Carbon Dioxide 27, Anion Gap 11.3, BUN 37 H D, Creatinine 1.34 H D, Estimated Creat Clear 24, Estimated GFR 37 L, Est GFR ( Amer) 45 L D, Glucose 104, Calcium 9.9 I & O for Last 24 hours: Intake & Output 11/13/18 11/14/18 11/15/18 11/16/18 11:59 11:59 11:59 11:59 Intake Total 918 / 918 4767 / 4767 1684 / 1684 Output Total 150 / 150 350 / 350 300 / 300 Balance 768 / 768 4417 / 4417 1384 / 1384 Weight 110 lb 5 oz 110 lb 5 oz 112 lb 2 oz Microbiology Reports for the Last 24 Hours: Microbiology 11/13/18 21:50 Urine,Catheterized Urine Culture - Preliminary Strep agalactiae - (group b) - Constitutional no acute distress - *Routine Respiratory Exam Present: CTA bilaterally - *Routine Cardiovascular Exam Present: RRR - *Routine Abdominal Exam Present: soft, normoactive bowel sounds. Absent: tenderness - *Routine Extremities Exam Absent: cyanosis, clubbing, edema - *Routine Skin Exam Present: warm. Absent: rash Assessment and Plan (1) Dehydration Current visit: Yes Status: Acute Category: Medical Code(s): E86.0 - Dehydration (2) Hypernatremia Current visit: Yes Status: Acute Category: Medical Code(s): E87.0 - Hyperosmolality and hypernatremia (3) Acute renal failure (ARF) Current visit: Yes Status: Acute Qualifiers: Acute renal failure type: unspecified Qualified Code(s): N17.9 - Acute kidney failure, unspecified Category: Medical Code(s): N17.9 - Acute kidney failure, unspecified (4) Dementia Current visit: Yes Status: Chronic Category: Medical Code(s): F03.90 - Unspecified dementia without behavioral disturbance (5) Hypercalcemia Current visit: Yes Status: Acute Category: Medical Code(s): E83.52 - Hypercalcemia (6) Prolonged INR Current visit: Yes Status: Acute Category: Medical Code(s): R79.1 - Abnormal coagulation profile (7) Chronic atrial fibrillation Current visit: Yes Status: Chronic Category: Medical Code(s): I48.2 - Chronic atrial fibrillation (8) Hx of aortic valve replacement Current visit: Yes Status: Chronic Category: Surgical Code(s): Z95.2 - Presence of prosthetic heart valve (9) Acute systolic (congestive) heart failure Current visit: No Status: Chronic Category: Medical Code(s): I50.21 - Acute systolic (congestive) heart failure (10) CAD (coronary artery disease) Current visit: No Status: Chronic Qualifiers: Coronary Disease-Associated Artery/Lesion type: [place] artery [place] vs. transplanted heart: [place] heart Associated angina: without angina Qualified Code(s): I25.10 - Atherosclerotic heart disease of [place] coronary artery without angina pectoris Category: Medical Code(s): I25.10 - Atherosclerotic heart disease of [place] coronary artery without angina pectoris (11) Elevated liver enzymes Current visit: Yes Status: Acute Category: Medical Code(s): R74.8 - Abnormal levels of other serum enzymes (12) UTI (urinary tract infection) Current visit: Yes Status: Acute Category: Medical Code(s): N39.0 - Urinary tract infection, site not specified - Assessment and plan all Dx Assessment and Plan for all problems:: Patient is much improved. She is stable to be discharged back to [facility]. Of note, she does have urinary tract infections and will be discharged on Levaquin.
--- NOTE | 2018-11-16 08:49 | Discharge Summary ---
General - General Admission date:: 11/14/18 Discharge date: 11/16/18 HPI HPI: Ms. Stevens is an 88-year-old female resident of [facility] with a quite lengthy medical history to include acute systolic heart failure, chronic atrial fibrillation, chronic kidney disease stage III, anemia, allergic rhinitis, asthma, AVR, general mental and physical debility, hypertension, COPD, and dementia who was brought to [facility] emergency room for evaluation after being notified by Dr. De Guzman's office of abnormal laboratory results. Patient was seen in the office of Dr. De Guzman where labs were drawn on 11/13/2018 after which patient also presented to the office of [facility] and was seen by Dr. Hines. Recent labs showed a creatinine of 2.1. Diuretics were decreased and gabapentin discontinued. At the time of this visit she had been traveling to the offices in a wheelchair and appeared fatigued. To note she had recently been hospitalized in [facility] with cardiology consult and was treated aggressively for her acute systolic congestive heart failure with spironolactone and Lasix. With evaluation in the emergency room she was started on IV fluids and admitted for gentle hydration and monitoring of labs. Hospital Course Hospital Course: The patient's chest x-ray showed mild cardiomegaly and healing right-sided rib fractures. The patient was initially very lethargic and had difficulty holding up her head. She had not been eating and was on fluid restriction. Her urinary output had been diminished. Her renal function was elevated with a creatinine of 2.81. She was started on gentle hydration and her IV fluids were changed to D5W due to increasing sodium. P.o. fluids were encouraged as well. Cardiology was consulted for direction on her medications. They felt her elevated BNP was likely secondary to pulmonary hypertension and a stretched right atrium and right ventricle. They felt she did need continued IV fluids and more free water. Her labs did begin improving and hydration was continued. She had some difficulty swallowing her pills, therefore a swallowing evaluation was ordered. The speech therapist recommended she remain on her current diet of mechanical soft with honey thick liquids and therapy was not recommended. Her Coumadin was held due to an elevated INR. Cardiology felt when she was sufficiently hydrated, she would need to be restarted on Lasix 40 mg daily and Spironolactone 25 mg daily. They also felt she did not need to be on a restricted fluid diet. Patient's urine culture came back positive for strep agalactiae which was sensitive to Levaquin. She was stable to be discharged back to [place] on Levaquin for her UTI. PO fluids need to be encouraged. She will need a BMP on 11/21/18. Objective Vital signs: Temp Pulse Resp BP Pulse Ox 97.7 F 57 L 17 102/47 L 98 11/16/18 07:49 11/16/18 07:49 11/16/18 07:49 11/16/18 07:49 11/16/18 07:49 Narrative: - Constitutional no acute distress Comments: Awakened easily from sleep. Answers questions with yes or no - *Routine HEENT Exam Head: Present: normocephalic, atraumatic Eye: Present: PERRL. Absent: conjunctival icterus, scleral injection ENT: Present: mucous membranes dry, oropharynx clear - *Routine Neck Exam Present: supple. Absent: carotid bruit, lymphadenopathy, thyromegaly - *Routine Respiratory Exam Present: CTA bilaterally (Anteriorly and posteriorly) - *Routine Cardiovascular Exam Present: murmur, irregular rhythm - *Routine Abdominal Exam Present: soft, normoactive bowel sounds. Absent: tenderness, distended - *Routine Extremities Exam Absent: edema, calf tenderness - *Routine Neurological Exam Present: alert Results Labs on day of discharge: Labs from last 24 hours 11/16/18 11/13/18 06:26 21:50 Sodium 136 Potassium 4.3 Chloride 102 Carbon Dioxide 27 Anion Gap 11.3 BUN 37 H D Creatinine 1.34 H D Estimated Creat Clear 24 Estimated GFR 37 L Est GFR ( Amer) 45 L D Glucose 104 Calcium 9.9 Urine Color Yellow Urine Appearance Clear Urine pH 6.0 Ur Specific [place] 1.020 Urine Protein 1+ Urine Glucose (UA) Negative Urine Ketones Negative Urine Blood 2+ Urine Nitrate Negative Urine Bilirubin Negative Urine Urobilinogen 0.2 Ur Leukocyte Esterase 1+ A Urine RBC 10-20 Urine WBC 5-10 Ur Squamous Epith Cells 3-5 Urine Bacteria Trace Hyaline Casts Occasional Preliminary micro results at discharge 11/13/18 21:50 Urine Culture - Preliminary Urine,Catheterized Strep agalactiae - (group b) DS: Diagnosis - Discharge Diagnosis (1) Dehydration Status: Acute (2) Hypernatremia Status: Acute (3) Acute renal failure (ARF) Status: Acute (4) Dementia Status: Chronic (5) Hypercalcemia Status: Acute (6) Prolonged INR Status: Acute (7) Chronic atrial fibrillation Status: Chronic (8) Hx of aortic valve replacement Status: Chronic (9) Acute systolic (congestive) heart failure Status: Chronic (10) CAD (coronary artery disease) Status: Chronic (11) Elevated liver enzymes Status: Acute (12) UTI (urinary tract infection) Status: Acute Discharge Plan - Patient Discharge Instructions Patient Instructions: Atrial Fibrillation, DI for Kidney Failure, Chronic Renal Failure, DI for Hypercalcemia, DI for Hyperkalemia, DI for Hypernatremia, Warfarin, Anticoagulation Care, Coumadin Vitamin K/ Diet, Coumadin Therapy Booklet - Follow up Plan Home Medications: Home Medications Medication Instructions Recorded Confirmed Type Acetaminophen [Acetaminophen 325mg 650 mg PO Q4HP PRN tab 06/01/17 11/13/18 Rx tab] dilTIAZem HCl [Diltiazem 180mg 180 mg PO DAILY #30 cap.er.24h 06/01/17 11/13/18 Rx 24Hr ER Cap] aspirin 81 mg tablet,delayed 81 mg PO DAILY 10/26/17 11/13/18 History release Donepezil HCl [Aricept 10mg 10 mg PO HS 10/26/18 11/13/18 History tablet] Memantine HCl [Memantine 10mg 10 mg PO BID 10/26/18 11/14/18 History Tablet] Mirabegron [Myrbetriq] 50 mg PO DAILY 10/26/18 11/14/18 History Multivit-Min/FA/Lycopen/Lutein 1 each PO DAILY 10/26/18 11/13/18 History [Centrum Silver Tablet] Polyethylene Glycol 3350 [Miralax 17 gm PO DAILY 10/26/18 11/14/18 History 17gm Packet] Warfarin Sodium [Coumadin 2mg 4 mg PO MOWEFR 10/26/18 11/14/18 History tablet] Fluticasone Propionate [Flonase 1 spr NS DAILY 10/29/18 11/13/18 History 50mcg nasal spray 16gm] Hydrocortisone [Proctosol-Hc] 1 applicatio TP TIDP PRN 10/29/18 11/13/18 History Albuterol Sulfate [Proventil-HFA 1 - 2 puffs IH Q6HP PRN 11/13/18 11/13/18 History 90mcg/puff Inh] Metoprolol Tartrate [Lopressor 25 mg PO BID 11/13/18 11/14/18 History 25mg tablet] Potassium Chloride [K-Tab ER 20 20 meq PO BID 11/13/18 11/13/18 History mEq] Spironolactone [Aldactone 25mg 25 mg PO DAILY 11/13/18 11/13/18 History Tab] furosemide 40 mg tablet 40 mg PO DAILY #30 tab 11/13/18 11/14/18 Rx guaiFENesin [Guaifenesin] 100 mg PO Q4-6H PRN 11/13/18 11/13/18 History levoFLOXacin [Levaquin 250mg 250 mg PO DAILY #7 tab 11/16/18 Rx tab] Prescriptions/Medication Reconciliation: No Action aspirin 81 mg tablet,delayed release 81 mg PO DAILY furosemide 40 mg tablet 40 mg PO DAILY #30 tab Acetaminophen [Acetaminophen 325mg tab] 650 mg PO Q4HP PRN tab PRN Reason: Mild To Moderate Pain dilTIAZem HCl [Diltiazem 180mg 24Hr ER Cap] 180 mg PO DAILY #30 cap.er.24h Memantine HCl [Memantine 10mg Tablet] 10 mg PO BID Donepezil HCl [Aricept 10mg tablet] 10 mg PO HS Warfarin Sodium [Coumadin 2mg tablet] 4 mg PO MOWEFR Multivit-Min/FA/Lycopen/Lutein [Centrum Silver Tablet] 1 each PO DAILY Mirabegron [Myrbetriq] 50 mg PO DAILY Hydrocortisone [Proctosol-Hc] 1 applicatio TP TIDP PRN PRN Reason: HEMMORRHOIDS Potassium Chloride [K-Tab ER 20 mEq] 20 meq PO BID Metoprolol Tartrate [Lopressor 25mg tablet] 25 mg PO BID guaiFENesin [Guaifenesin] 100 mg PO Q4-6H PRN PRN Reason: Cough Spironolactone [Aldactone 25mg Tab] 25 mg PO DAILY Polyethylene Glycol 3350 [Miralax 17gm Packet] 17 gm PO DAILY Fluticasone Propionate [Flonase 50mcg nasal spray 16gm] 1 spr NS DAILY Albuterol Sulfate [Proventil-HFA 90mcg/puff Inh] 1 - 2 puffs IH Q6HP PRN PRN Reason: Shortness Of Breath
== END 2018-11-16 10:45 | DRG 640 ==
LOC: ER 19:47 → 2ND 19:47
PROVIDERS: ADMIT Family Medicine; ATTEND Family Medicine
CPT/HCPCS: 36415; 71010; 71045; 80048; 80053; 80076; 81001; 82248; 83735; 83880; 84484; 85025; 85610; 87086; 87088; 87186; 92610; 93005; 99284; G0378